=== PATIENT | male | born 1975 | race African-American/Black ===

== ENCOUNTER 2018-12-15 17:13 | Observation (INO) | payer OTHER ==
[2018-12-15 18:16] VITALS: RESP 16
--- NOTE | 2018-12-15 18:32 | ED ---
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 Patient states that the pain started approximately 2 hours ago. Describes as a sharp stabbing pain to the substernal region. Denies any radiation of the pain through to his back. States the pain did worsen with deep breathing. States he did take a nitro that was prescribed to him on the of this month. States it did diminish the pain somewhat. States and EMS he did receive aspirin and a second nitro which relieved the pain completely. Patient states that his chest also felt a generalized tightness. He denies any nausea, vomiting, sweats, or shortness of breath. Patient did have a similar episode of chest pain on the but denies any history of stenting or DE. States he does have a family history of coronary artery disease in his father. Patient does admit to smoking cigarettes. Patient denies any recent rash, fever, chills, abdominal pain, diarrhea, constipation, back pain, numbness, tingling, dizziness, weakness, hematuria, dysuria, urinary urgency, urinary frequency, headache, visual changes, or any other complaints. - Related Data Home Medications Medication Instructions Recorded Confirmed Acetaminophen [Tylenol Arthritis] 650 mg PO Q4H 12/15/18 12/15/18 Multivitamins, Thera [Multivitamin 1 tab PO DAILY 12/15/18 12/15/18 (formulary)] Nitroglycerin Sl Tabs [Nitrostat] 0.4 mg SL Q5M 12/15/18 12/15/18 Thiamine [Vitamin B-1] 100 mg PO DAILY 12/15/18 12/15/18 Allergies Allergy/AdvReac Type Severity Reaction Status Date / Time No Known Allergies Allergy Unverified 12/15/18 18:07 Review of Systems ROS Statement: Those systems with pertinent positive or pertinent negative responses have been documented in the HPI. ROS Other: All systems not noted in ROS Statement are negative. EKG Findings - EKG Comments: EKG Findings:: EKG obtained at 1939 shows normal sinus rhythm with a ventricular rate of 6.1, TN interval 136, QRS duration 92, QT 394, QTC 396. No evidence of ST elevation or depression. Past Medical History Past Medical History: Chest Pain / Angina History of Any Multi-Drug Resistant Organisms: None Reported Additional Past Surgical History / Comment(s): no surgeries Past Psychological History: Bipolar Smoking Status: Current every day smoker Past Alcohol Use History: Occasional Past Drug Use History: Cocaine General Exam Limitations: no limitations General appearance: alert, in no apparent distress, other (Physical well- developed, well-nourished male patient in no acute distress. Vital signs upon presentation are temperature 97.7F, pulse 66, respirations 16, blood pressure 124/82, pulse ox 99% on room air.) Eye exam: Present: normal appearance, PERRL, EOMI. Absent: scleral icterus, conjunctival injection, periorbital swelling ENT exam: Present: normal exam, normal oropharynx, mucous membranes moist Respiratory exam: Present: normal lung sounds bilaterally. Absent: respiratory distress, wheezes, rales, rhonchi, stridor Cardiovascular Exam: Present: regular rate, normal rhythm, normal heart sounds. Absent: systolic murmur, diastolic murmur, rubs, gallop, clicks GI/Abdominal exam: Present: soft, normal bowel sounds. Absent: distended, tenderness, guarding, rebound, rigid Neurological exam: Present: alert, oriented X3, CN II-XII intact Psychiatric exam: Present: normal affect, normal mood Skin exam: Present: warm, dry, intact, normal color. Absent: rash Course Vital Signs 12/15/18 12/15/18 18:10 21:05 Temperature 97.7 F Pulse Rate 66 68 Respiratory 16 16 Rate Blood Pressure 124/82 148/99 O2 Sat by Pulse 99 99 Oximetry Chest Pain [facility] RADIOLOGY:Two-view x-ray of the chest is obtained. Report was reviewed in its entirety. Impression by Dr. Marla Mckinney shows no acute process. MDM: 43-year-old male patient presented to the emergency department today for evaluation of substernal chest pain that started 2 hours prior to arrival. Symptoms did resolve with administration of 2 nitro tablets. Labs reviewed and are unremarkable. EKG showed normal sinus rhythm. I did discuss findings and results with the patient. He'll be admitted for further evaluation and consultation with cardiology. Disposition Clinical Impression: Chest pain Disposition: ADMITTED IP TO THIS [facility] Condition: Serious Decision to Admit Reason: Admit from EC Decision Time: 21:44
[2018-12-15 19:10] LABS: Basophils # (A) 0.1 k/uL (0-0.2); Basophils % (A) 1 %; Eosinophils # (A) 0.4 k/uL (0-0.7); Eosinophils % (A) 6 %; HGB 14.2 gm/dL (13.0-17.5); Lymphocytes # (A) 1.2 k/uL (1.0-4.8); Lymphocytes % (A) 18 %; MCH 27.6 pg (25.0-35.0); MCHC 31.5 g/dL (31.0-37.0); MCV 87.7 fL (80.0-100.0); Mean Platelet Volume 8.7; Monocytes # (A) 0.5 k/uL (0-1.0); Monocytes % (A) 8 %; Neutrophils # (A) 4.3 k/uL (1.3-7.7); Neutrophils % (A) 65 %; Platelet Count 234 k/uL (150-450); RBC 5.13 m/uL (4.30-5.90); RDW 14.7 % (11.5-15.5); WBC 6.7 k/uL (3.8-10.6)
[2018-12-15 19:27] LABS: ALT 29 U/L (21-72); AST 56 U/L (17-59); African American GFR (CKD) >90 (>60 ml/min/1.73 sqM); Albumin 4.3 g/dL (3.5-5.0); Alkaline Phosphatase 81 U/L (38-126); Anion Gap 5 mmol/L; Blood Urea Nitrogen 12 mg/dL (9-20); Calcium 9.2 mg/dL (8.4-10.2); Carbon Dioxide 29 mmol/L (22-30); Chloride 104 mmol/L (98-107); Glucose 86 mg/dL (74-99); Magnesium 2.4 mg/dL (1.6-2.3); Sodium 138 mmol/L (137-145); Total Bilirubin 1.1 mg/dL (0.2-1.3); Total Protein 7.1 g/dL (6.3-8.2)
[2018-12-15 19:38] LABS: Potassium 5.8 mmol/L (3.5-5.1)
[2018-12-15 19:40] LABS: INR 0.9 (<1.2); Partial Thromboplastin Time 25.1 sec (22.0-30.0); Prothrombin Time 9.9 sec (9.0-12.0)
--- NOTE | 2018-12-15 21:07 | XR ---
EXAMINATION: XR chest 2V DATE AND TIME: 12/15/2018 8:00 PM CLINICAL INDICATION: PHH; Chest Pain TECHNIQUE: Departmental protocol COMPARISON: None FINDINGS: The lungs are clear. The pleural spaces are negative. The cardiac silhouette is not enlarged. The remainder of the mediastinal silhouette is unremarkable. The skeletal structures and soft tissues are negative for acute findings. IMPRESSION: NO ACUTE PROCESS.
[2018-12-15] MEDS ORDERED: NALOXONE 0.4 MG/ML 1 ML VIAL IV PRN (21:40)
[2018-12-15] MEDS ORDERED: SODIUM CHLORIDE 0.9% 500 ML 500 ML IV ONE (21:43)
[2018-12-15] MEDS ORDERED: SODIUM CHLORIDE 0.9% 1,000 ML IV ONE (21:43)
[2018-12-15] MEDS ORDERED: NICOTINE 21MG/24HR PATCH TRANSDERM STA (21:57)
[2018-12-16 01:25] LABS: Carbon Dioxide 26 mmol/L (22-30); Chloride 106 mmol/L (98-107); Glucose 105 mg/dL (74-99); Sodium 138 mmol/L (137-145)
[2018-12-16 01:26] LABS: ALT 29 U/L (21-72); AST 35 U/L (17-59); African American GFR (CKD) >90 (>60 ml/min/1.73 sqM); Albumin 3.6 g/dL (3.5-5.0); Alkaline Phosphatase 70 U/L (38-126); Anion Gap 6 mmol/L; Blood Urea Nitrogen 15 mg/dL (9-20); Calcium 8.9 mg/dL (8.4-10.2); Magnesium 2.2 mg/dL (1.6-2.3); Total Bilirubin 0.3 mg/dL (0.2-1.3); Total Protein 6.1 g/dL (6.3-8.2)
[2018-12-16 01:27] LABS: Potassium 4.2 mmol/L (3.5-5.1)
[2018-12-16] MEDS: SODIUM CHLORIDE 0.9% 1,000 ML IV SCH ×2 (02:21→23:53)
[2018-12-16] MEDS: ACETAMINOPHEN TAB 325 MG TAB PO SCH ×7 (02:22→23:52)
[2018-12-16] MEDS: MULTIVITAMINS, THERA 1 EACH TAB PO SCH (08:41)
[2018-12-16] MEDS: THIAMINE 100 MG TAB PO SCH (08:41)
--- NOTE | 2018-12-16 09:29 | P.CRDCN ---
History of Present Illness Consult date: 12/16/18 Requesting physician: Farzana Wynn Consult reason: chest pain Chief complaint: Chest pain History of present illness: This is a 43-year-old -[place] gentleman with no prior documented history of hypertension, no diabetes, no hyperlipidemia, he does smoke, states he used to smoke up to 3 packs of cigarettes per day, has cut down significantly. He is currently at [facility] for cocaine use. Presents to the hospital with symptoms of chest discomfort which she describes as a sharp stabbing pain, worse when he takes a deep breath. He states that he had the symptoms prior, he went [place] [facility] [place], states that he had a stress test performed there which was reported to be normal. He was discharged from the hospital with sublingual nitroglycerin. Chest x-ray did not reveal any acute process. His initial EKG on presentation here showed a knot normal sinus rhythm with ST elevation and IA depression in the inferior anterior lateral leads, subsequent EKG performed this morning continued to show similar changes, suggestive of possible pericarditis. Blood pressure 124/80 with a heart rate in the 60s, 99% on room air. White blood cell count 6.7, hemoglobin 14.2, platelet count 234. Sodium 138, potassium 5.8, BUN 12 and creatinine 1.1. Magnesium 2.4 on admission. Troponins 0.013, 0.012, 0.012. At the time of my examination this morning, the patient is currently chest pain-free. Past Medical History Past Medical History: Chest Pain / Angina History of Any Multi-Drug Resistant Organisms: None Reported Additional Past Surgical History / Comment(s): no surgeries Past Psychological History: Bipolar Smoking Status: Current every day smoker Past Alcohol Use History: Occasional Past Drug Use History: Cocaine Medications and Allergies Home Medications Medication Instructions Recorded Confirmed Type Acetaminophen [Tylenol Arthritis] 650 mg PO Q4H 12/15/18 12/15/18 History Multivitamins, Thera [Multivitamin 1 tab PO DAILY 12/15/18 12/15/18 History (formulary)] Nitroglycerin Sl Tabs [Nitrostat] 0.4 mg SL Q5M 12/15/18 12/15/18 History Thiamine [Vitamin B-1] 100 mg PO DAILY 12/15/18 12/15/18 History Allergies Allergy/AdvReac Type Severity Reaction Status Date / Time No Known Allergies Allergy Unverified 12/15/18 18:07 Physical Exam Vitals: Vital Signs Temp Pulse Pulse Resp BP BP Pulse Ox 12/16/18 08:00 96.5 F L 58 L 16 114/68 100 12/16/18 03:48 97 F L 64 16 132/84 98 12/16/18 01:14 97.7 F 61 16 132/86 12/15/18 21:05 68 16 148/99 99 12/15/18 18:10 97.7 F 66 16 124/82 99 Intake and Output 12/15/18 12/16/18 12/16/18 22:59 06:59 14:59 Intake Total 200 Output Total 2 Balance 198 Intake: Oral 200 Output: Urine 2 Other: Weight 70.307 kg 68.9 kg PHYSICAL EXAMINATION: GENERAL: 43-year-old -[place] gentleman in no acute distress at the time of my examination HEENT: Head is atraumatic, normocephalic. Pupils equal, round. Sclera anicteric. Conjunctiva are clear. Mucous membranes of the mouth are moist. Neck is supple. There is no elevated jugular venous pressure. No carotid bruit is heard. HEART EXAMINATION: Heart S1-S2 no audible rub is heard CHEST EXAMINATION: Lungs are clear to auscultation and precussion. No chest wall tenderness is noted on palpation or with deep breathing. ABDOMEN: Soft, nontender. Bowel sounds are heard. No organomegaly noted. EXTREMITIES: 2+ peripheral pulses with no evidence of peripheral edema and no calf tenderness noted. NEUROLOGIC patient is awake, alert and oriented 3 . Results 12/15/18 18:55 12/16/18 01:05 Cardiac Enzymes 12/15/18 12/15/18 12/16/18 Range/Units 18:55 18:55 01:05 AST 56 (17-59) U/L Troponin I 0.013 <0.012 (0.000-0.034) ng/mL 12/16/18 12/16/18 Range/Units 01:05 06:53 AST 35 (17-59) U/L Troponin I <0.012 (0.000-0.034) ng/mL Coagulation 12/15/18 Range/Units 18:55 PT 9.9 (9.0-12.0) sec APTT 25.1 (22.0-30.0) sec CBC 12/15/18 Range/Units 18:55 WBC 6.7 (3.8-10.6) k/uL RBC 5.13 (4.30-5.90) m/uL Hgb 14.2 (13.0-17.5) gm/dL Hct 45.0 (39.0-53.0) % Plt Count 234 (150-450) k/uL Comprehensive Metabolic Panel 12/15/18 12/16/18 Range/Units 18:55 01:05 Sodium 138 138 (137-145) mmol/L Potassium 5.8 H 4.2 (3.5-5.1) mmol/L Chloride 104 106 (98-107) mmol/L Carbon Dioxide 29 26 (22-30) mmol/L BUN 12 15 (9-20) mg/dL Creatinine 1.13 1.07 (0.66-1.25) mg/dL Glucose 86 105 H (74-99) mg/dL Calcium 9.2 8.9 (8.4-10.2) mg/dL AST 56 35 (17-59) U/L ALT 29 29 (21-72) U/L Alkaline Phosphatase 81 70 (38-126) U/L Total Protein 7.1 6.1 L (6.3-8.2) g/dL Albumin 4.3 3.6 (3.5-5.0) g/dL Current Medications Generic Name Dose Route Start Last Admin Trade Name Freq PRN Reason Stop Dose Admin Acetaminophen 650 mg 12/16/18 00:30 12/16/18 08:41 Tylenol Tab PO Not Given Q4H YASIR Sodium Chloride 1,000 mls @ 50 mls/hr 12/15/18 21:45 12/16/18 02:21 Saline 0.9% IV 50 mls/hr .Q20H YASIR Administration Multivitamins 1 each 12/16/18 09:00 12/16/18 08:41 Theragran PO 1 each DAILY YASIR Administration Naloxone HCl 0.2 mg 12/15/18 21:40 Narcan IV Q2M PRN Opioid Reversal Thiamine HCl 100 mg 12/16/18 09:00 12/16/18 08:41 Vitamin B-1 PO 100 mg DAILY YASIR Administration Intake and Output 12/15/18 12/16/18 12/16/18 22:59 06:59 14:59 Intake Total 200 Output Total 2 Balance 198 Intake: Oral 200 Output: Urine 2 Other: Weight 70.307 kg 68.9 kg 12/15/18 18:55 12/16/18 01:05 EKG Interpretations (text) EKG shows normal sinus rhythm with evidence of ST elevation and IA depression. Assessment and Plan Plan: Assessment and plan #1 chest pain, atypical for acute coronary syndrome, pleuritic in nature. EKG shows normal sinus rhythm with ST elevation and IA depression in the inferior anterior lateral leads suggestive of possible pericarditis. Troponins are negative 3. #2 cocaine use, patient is currently at [facility] #3 nicotine dependence Plan We will obtain a sed rate, we will also request an echocardiogram with Doppler study be performed. Patient recently underwent stress testing at [facility], we will request a copy of that along with the EKG performed there. Further recommendations to follow. DNP note has been reviewed, I agree with a documented findings and plan of care. Patient was seen and examined.
[2018-12-16] MEDS: COLCHICINE 0.6 MG EACH PO SCH ×2 (11:59→20:49)
[2018-12-16] MEDS: NAPROXEN 250 MG TAB PO SCH ×2 (11:59→20:48)
--- NOTE | 2018-12-16 12:16 | ECHOF ---
Referral Reason:chest pain MEASUREMENTS -------- HEIGHT: 175.3 cm WEIGHT: 68.5 kg BP: 114/68 RVIDd: 3.3 cm (< 3.3) IVSd: 1.1 cm (0.6 - 1.1) LVIDd: 4.0 cm (3.9 - 5.3) LVPWd: 1.4 cm (0.6 - 1.1) IVSs: 1.3 cm LVIDs: 3.0 cm LVPWs: 1.7 cm LAESV Index (A-L): 21.65 ml/m Ao Diam: 2.6 cm (2.0 - 3.7) AV Cusp: 1.9 cm (1.5 - 2.6) LA Diam: 3.0 cm (2.7 - 3.8) MV EXCURSION: 20.347 mm (> 18.000) MV EF SLOPE: 116 mm/s (70 - 150) EPSS: 0.7 cm MV E Juan Miguel: 0.65 m/s MV DecT: 180 ms MV A Juan Miguel: 0.48 m/s MV E/A Ratio: 1.36 RAP: 20.00 mmHg RVSP: 41.16 mmHg FINDINGS -------- Sinus rhythm. This was a technically good study. The left ventricular size is normal. There is mild concentric left ventricular hypertrophy. Overa ll left ventricular systolic function is mildly impaired with, an EF between 45 - 50 %. Basal and m id septal wall motion are mildly hypokinetic The right ventricle is mildly enlarged. Normal LA size by volume 22+/-6 ml/m2. Interatrial and interventricular septum intact. There is no evidence of aortic regurgitation. There is no evidence of aortic stenosis. Mild mitral annular calcification present. Mild mitral regurgitation is present. No regurgitation noted There is mild pulmonary hypertension. The right ventricular systolic press ure, as measured by Doppler, is 41.16mmHg. Pulmonic valve appears structurally normal. The aortic root size is normal. The inferior vena cava is mildly dilated. There is no pericardial effusion. CONCLUSIONS -------- 1. Sinus rhythm. 2. This was a technically good study. 3. The left ventricular size is normal. 4. There is mild concentric left ventricular hypertrophy. 5. Overall left ventricular systolic function is mildly impaired with, an EF between 45 - 50 %. 6. Basal and mid septal wall motion are mildly hypokinetic 7. The right ventricle is mildly enlarged. 8. Normal LA size by volume 22+/-6 ml/m2. 9. Interatrial and interventricular septum intact. 10. There is no evidence of aortic regurgitation. 11. There is no evidence of aortic stenosis. 12. Mild mitral annular calcification present. 13. Mild mitral regurgitation is present. 14. No regurgitation noted 15. There is mild pulmonary hypertension. 16. The right ventricular systolic pressure, as measured by Doppler, is 41.16mmHg. 17. Pulmonic valve appears structurally normal. 18. The aortic root size is normal. 19. The inferior vena cava is mildly dilated. 20. There is no pericardial effusion. POWER SAW OPERATOR: Haleigh Saldana RDCS
--- NOTE | 2018-12-16 12:59 | P.HPIM ---
History of Present Illness This is a pleasant 43 years old male with past medical history of chest pain and bipolar disorder, cigarette smoker. Cocaine abuse he was at [facility]. He presents because of chest pain, patient not sure how long he has this chest pain he [place] [facility] [place] similar chest pain with had stress test done for him and then he'll be discharged and nitroglycerin pills. He is following up with [facility] since 12/10/2018 for his cocaine abuse, last time he was abuse was 12/07/2018 as per patient. He denies using other substances like no Heroin. His chest pain central, nonradiating, but it/10 in severity, sharp in character that worse by deep breathing and coughing. Has been coughing to stop for about 9-10 days. Currently patient is chest pain-free Patient denies dyspnea, no change in urine or bowel habits no abdominal pain. No dizziness or syncope. Vitas looks stable, CBC and BMP were unremarkable. Troponins are negative. EKG showing ST elevation in the anterior lateral leads. Chest x-ray showing no a cute process as per Radiologist. Hop Separator evaluated the patient and suspected pericarditis based on his ST elevation in the EKG leads and clinical presentation. Review of Systems CONSTITUTIONAL: No fever, no malaise, no fatigue. HEENT: No recent visual problems or hearing problems. Denied any sore throat. CARDIOVASCULAR: No orthopnea, PND, no palpitations, no syncope. PULMONARY: No shortness of breath, no cough, no hemoptysis. GASTROINTESTINAL: No diarrhea, no nausea, no vomiting, no abdominal pain. Normoactive bowel sounds. NEUROLOGICAL: No headaches, no weakness, no numbness. HEMATOLOGICAL: Denies any bleeding or petechiae. GENITOURINARY: Denies any burning micturition, frequency, or urgency. MUSCULOSKELETAL/RHEUMATOLOGICAL: Denies any joint pain, swelling, or any muscle pain. ENDOCRINE: Denies any polyuria or polydipsia. Past Medical History Past Medical History: Chest Pain / Angina History of Any Multi-Drug Resistant Organisms: None Reported Additional Past Surgical History / Comment(s): no surgeries Past Psychological History: Bipolar Smoking Status: Current every day smoker Past Alcohol Use History: Occasional Past Drug Use History: Cocaine Medications and Allergies Home Medications Medication Instructions Recorded Confirmed Type Acetaminophen [Tylenol Arthritis] 650 mg PO Q4H 12/15/18 12/15/18 History Multivitamins, Thera [Multivitamin 1 tab PO DAILY 12/15/18 12/15/18 History (formulary)] Nitroglycerin Sl Tabs [Nitrostat] 0.4 mg SL Q5M 12/15/18 12/15/18 History Thiamine [Vitamin B-1] 100 mg PO DAILY 12/15/18 12/15/18 History Allergies Allergy/AdvReac Type Severity Reaction Status Date / Time No Known Allergies Allergy Unverified 12/15/18 18:07 Physical Exam Vitals: Vital Signs Temp Pulse Pulse Resp BP BP Pulse Ox 12/16/18 12:00 66 16 129/69 100 12/16/18 08:00 96.5 F L 58 L 16 114/68 100 12/16/18 03:48 97 F L 64 16 132/84 98 12/16/18 01:14 97.7 F 61 16 132/86 12/15/18 21:05 68 16 148/99 99 12/15/18 18:10 97.7 F 66 16 124/82 99 Intake and Output 12/15/18 12/16/18 12/16/18 22:59 06:59 14:59 Intake Total 200 Output Total 2 Balance 198 Intake: Oral 200 Output: Urine 2 Other: Weight 70.307 kg 68.9 kg GENERAL: The patient is alert and oriented x3, not in any acute distress. Well developed, well nourished. HEENT: Pupils are round and equally reacting to light. EOMI. No scleral icterus. No conjunctival pallor. Normocephalic, atraumatic. No pharyngeal erythema. No thyromegaly. CARDIOVASCULAR: S1 and S2 present. No murmurs, rubs, or gallops. PULMONARY: Chest is clear to auscultation, no wheezing or crackles. ABDOMEN: Soft, nontender, nondistended, normoactive bowel sounds. No palpable organomegaly. MUSCULOSKELETAL: No joint swelling or deformity. EXTREMITIES: No cyanosis, clubbing, or pedal edema. NEUROLOGICAL: Gross neurological examination did not reveal any focal deficits. SKIN: No rashes. Results CBC & Chem 7: 12/15/18 18:55 12/16/18 01:05 Labs: Abnormal Lab Results - Last 24 Hours (Table) 06/26/19 06/27/19 Range/Units 18:55 01:05 Potassium 5.8 H (3.5-5.1) mmol/L Glucose 105 H (74-99) mg/dL Magnesium 2.4 H (1.6-2.3) mg/dL Total Protein 6.1 L (6.3-8.2) g/dL Thrombosis Risk Factor Assmnt - Choose All That Apply Any of the Below Risk Factors Present?: Yes Other Risk Factors: No Other congenital or acquired thrombophilia - If yes, enter type in comment: No Assessment and Plan Assessment: Pleuritic chest pain, most likely related to pericarditis History of chest pain with negative stress test History of bipolar Nicotine dependence Recent history of cocaine abuse, he was managed at [facility] Plan: This is a pleasant 43 years old male who presents with pericarditis. Hop Separator evaluated the patient and following the case. Echocardiogram. ESR. Pain management Labs and medication were reviewed.. Continue same treatment. Continue with symptomatic treatment. Resume home medication. Monitor lytes and vitals. DVT and GI prophylaxis. Further recommendations of the clinical course of the pat ient Prognosis is guarded
[2018-12-16 18:27] LABS: Amphetamine Screen,Urine Not Detected (NotDetected); Barbiturate Screen,Urine Not Detected (NotDetected); Benzodiazepines Screen,Urine Not Detected (NotDetected); Cocaine Screen,Urine Not Detected (NotDetected); Methadone Screen, Urine Not Detected (NotDetected); Opiate Screen,Urine Not Detected (NotDetected); Oxycodone Screen, Urine Not Detected (NotDetected); Phencyclidine Screen,Urine Not Detected (NotDetected); Tricyclic Antidepressant,Urine Not Detected (NotDetected); Urn Cannabinoid Scrn Not Detected (NotDetected)
[2018-12-16] MEDS ORDERED: NICOTINE 21MG/24HR PATCH TRANSDERM STA (21:08)
[2018-12-17] MEDS: ACETAMINOPHEN TAB 325 MG TAB PO SCH ×3 (04:43→12:41)
[2018-12-17] MEDS: NAPROXEN 250 MG TAB PO SCH (08:37)
[2018-12-17] MEDS: THIAMINE 100 MG TAB PO SCH (08:38)
[2018-12-17] MEDS: MULTIVITAMINS, THERA 1 EACH TAB PO SCH (08:38)
[2018-12-17] MEDS: COLCHICINE 0.6 MG EACH PO SCH (08:38)
[2018-12-17 08:43] VITALS: BP 106/53; PULSE 58; TEMP 97.9
--- NOTE | 2018-12-17 17:55 | PN ---
PROGRESS NOTE DATE OF SERVICE: Mr. Carvajal is feeling a lot better. His pleuritic pain and respirophasic pain and the chest pain when lying back have improved significantly. Clinical diagnosis of pericarditis was made and patient was given colchicine and Naprosyn. He is doing better. Echo revealed some wall motion abnormalities, but I reviewed the echo from [facility], which was a better study, with contrast, and that revealed ejection fraction at the low end of normal without wall motion abnormalities, and with dobutamine there was excellent contractility. I discussed this with the patient. He can be discharged with 2 weeks of colchicine, 5 days of Naprosyn, and Pepcid 20 mg b.i.d. He will follow up with his career development counselor [place] [facility]. The patient is currently at [place] [facility] detoxifying for his drug addiction. MMLUCRECIA / FLACO: [id number] /
[2018-12-17] MEDS ORDERED: FAMOTIDINE 20 MG TAB PO SCH (21:00)
[2018-12-17] MEDS ORDERED: NICOTINE 21MG/24HR PATCH TRANSDERM SCH (21:00)
--- NOTE | 2018-12-17 22:42 | P.DS ---
Providers Date of admission: 12/17/18 07:29 Attending physician: Farzana Wynn Consults: 12/15/18 21:40 Consult Physician Routine Consulting Provider: [facility] Consult Reason/Comments: Chest Pain Do you want consulting provider notified?: Yes Primary care physician: Stated None Hospital Course: Diagnoses: Pleuritic chest pain, most likely related to pericarditis nicotine dependance History of chest pain with negative stress test History of bipolar Nicotine dependence Recent history of cocaine abuse, he was managed at [facility] Hospital course: This is a pleasant 43 years old male who presents with signs symptoms of chest pain suspicious for pericarditis in the view of ST elevation noted on her EKG. Patient has been evaluated by welfare supervisor who diagnosed with pericarditis. Patient was started on colchicine and patient showed interval improvement. On the day of discharge patient denies chest pain or dyspnea. No abdominal pain. No change in urine or bowel habits. No fever.pt will be dc on colchicine and naproxen as per cardio recommendation Patient was cleared by cardiology services for discharge Problems and management plan were discussed with the patient and he verbalized understanding and acceptance Patient was found stable and can be discharged home however he needs follow-up as an outpatient. pt was instructed to f/u with his welfare supervisor and pcp in one week . pt does not want to f/u with his welfare supervisor at [facility] and wants to f/u with local welfare supervisor group of this hospital Gen: patient is a AAOx3, no distress CVS: S1-S2, RRR, no murmur Lungs: B/L CTA, no wheezing Abdomen: soft, no distention, no tenderness, positive bowel sounds Extremity: no leg edema or induration Time spent more than 35 minutes Patient Condition at Discharge: Stable Plan - Discharge Summary Discharge Rx Participant: No New Discharge Prescriptions: New Nicotine 21Mg/24Hr Patch [Habitrol] 1 patch TRANSDERM DAILY@2100 #30 patch Thiamine [Vitamin B-1] 100 mg PO DAILY #30 tab Naproxen [Naprosyn] 375 mg PO BID #10 tab Colchicine [Colcrys] 0.6 mg PO BID 14 Days #28 tablet Continue Acetaminophen [Tylenol Arthritis] 650 mg PO Q4H Thiamine [Vitamin B-1] 100 mg PO DAILY Nitroglycerin Sl Tabs [Nitrostat] 0.4 mg SL Q5M Multivitamins, Thera [Multivitamin (formulary)] 1 tab PO DAILY #20 tab Discharge Medication List Acetaminophen [Tylenol Arthritis] 650 mg PO Q4H 12/15/18 [History] Nitroglycerin Sl Tabs [Nitrostat] 0.4 mg SL Q5M 12/15/18 [History] Thiamine [Vitamin B-1] 100 mg PO DAILY 12/15/18 [History] Colchicine [Colcrys] 0.6 mg PO BID 14 Days #28 tablet 12/17/18 [Rx] Multivitamins, Thera [Multivitamin (formulary)] 1 tab PO DAILY #20 tab 12/17/18 [Rx] Naproxen [Naprosyn] 375 mg PO BID #10 tab 12/17/18 [Rx] Nicotine 21Mg/24Hr Patch [Habitrol] 1 patch TRANSDERM DAILY@2100 #30 patch 12/17/18 [Rx] Thiamine [Vitamin B-1] 100 mg PO DAILY #30 tab 12/17/18 [Rx] Follow up Appointment(s)/Referral(s): Rosmery Arredondo MD [STAFF PHYSICIAN] - 1 Week (Spoke to tank farm attendant. Office will call with appointment time) Maryanne Lockhart MD [REFERRING] - 1 Week (Please call to schedule appointment. Per office policy i can't do this for you.) None,Stated [Primary Care Provider] - 1-2 days Patient Instructions/Handouts: Hyperkalemia (DC), Acute Pericarditis (DC) Activity/Diet/Wound Care/Special Instructions: Contact [facility] at discharge - they will provide transportation - [phone] option #4. activity is limited till you see your doctor Discharge Disposition: HOME SELF-CARE
== END 2018-12-17 16:30 | disposition home or self-care (01) ==
LOC: EC 17:13 → UNDOADMOB 22:46 → 3SCARD 22:46 → 1SOBS 22:46 → OBSVTOIN 12-17 07:29 → INTOOBSV 12-17 07:29 → UNDODISIN 12-17 16:30
PROVIDERS: ADMIT Internal Medicine; ATTEND Internal Medicine
DX: R07.81 Pleurodynia (principal); R05 Cough; F17.210 Nicotine dependence, cigarettes, uncomplicated; F14.10 Cocaine abuse, uncomplicated; F31.9 Bipolar disorder, unspecified; Z82.49 Family history of ischemic heart disease and other diseases of the circulatory system; Z79.899 Other long term (current) drug therapy
CPT/HCPCS: 96361 ×2; 96360; 99285; 36415; 93005; 93306; 80053 ×2; 85652; 83735 ×2; 84484 ×2; 85025; 85610; 85730; 80306; 71046; G0378 ×4; S4990 ×2